=== PATIENT | female | born 1975 | race African-American/Black ===

== ENCOUNTER 2022-05-21 22:39 | Emergency (ER) | payer BC, SELFPAY ==
--- NOTE | ~2022-05-21 | CT_ITS ---
EXAMINATION: CT brain wo con DATE: 05/21/2022 22:51 INDICATION: CVA . Right facial droop. TECHNIQUE: Computed tomography (CT) of the head was performed without intravenous contrast. The mA wa s adjusted according to patient size. Iterative reconstruction technique was employed. The dose-lengt h product was 605.33 mGy-cm. COMPARISON: None FINDINGS: No acute intracranial hemorrhage or extra-axial fluid collection. No hydrocephalus, mass, or herniation. No acute ischemic infarct. Unremarkable dural venous sinus attenuation. No acute osseous abnormality. Right mastoid effusion. Minimal mucosal thickening in the bilateral maxillary sinuses, otherwise the aerated spaces are clear. Mild atherosclerotic arterial intracranial calcifications. IMPRESSION: No acute intracranial process. Results reported telephonically to Dr. Barreto by Dr. Gurrola at 10:56 PM on 05/21/2022. Reviewed, dictated and finalized at location K. IMPRESSION: No acute intracranial process. Results reported telephonically to Dr. Barreto by Dr. Gurrola at 10:56 PM on .
--- NOTE | 2022-05-21 22:44 | ECG_ITS ---
Measurements Intervals [place] Rate: 83 P: 47 CT: 167 QRS: 20 QRSD: 78 T: 28 QT: 380 QTc: 448 Interpretive Statements SINUS RHYTHM WITHIN NORMAL LIMITS NO PREVIOUS ECG AVAILABLE FOR COMPARISON Electronically Signed On 05-23-2022 16:08:05 CDT by Brandon Robert M.D.
--- NOTE | 2022-05-21 22:47 | ED.GENADULT ---
HPI - General Adult General Chief complaint: Suspected CVA Stated complaint: neuro Time Seen by Provider: 05/21/22 22:43 History of Present Illness HPI narrative: 47-year-old female presenting to the emergency department for evaluation of onset of right-sided facial droop at approximately 6:00 tonight. Patient denies any other associated numbness or weakness. Patient is not vaccinated to COVID. Patient has not yet had COVID. Patient denies any chest pain or shortness of breath. Patient does report some associated right-sided ear pain Related Data Allergies Allergy/AdvReac Type Severity Reaction Status Date / Time No Known Allergies Allergy Unverified 03/01/16 02:33 Review of Systems Review of Systems: CONSTITUTIONAL: Denies fever, chills, or sweats. EYES: Denies visual changes, redness, or discharge. ENT: Denies rhinorrhea, congestion, sore throat, or otalgia. CARDIOVASCULAR: Denies chest pain, palpitations, or edema. RESPIRATORY: Denies cough or dyspnea. GASTROINTESTINAL: Denies abdominal pain, nausea, vomiting, or diarrhea. GENITOURINARY: Denies dysuria or hematuria. SKIN: Denies rash or itching. MUSCULOSKELETAL: Denies back pain, joint pain, or myalgia. NEUROLOGIC: Right-sided facial droop PSYCHIATRIC: Denies anxiety or depression. [facility] Family History Family History (Updated 07/27/14 @ 07:13 by DOCTOR UNKNOWN) Sibling Family history of mental disorder Depression Hypertension Mother Depression Hypertension Family history of osteoarthritis Family history of hypothyroidism Father Family history of malignant neoplasm of esophagus Patient's father is Social History Social History Alcohol intake: never Exam Narrative: APPEARANCE: Well appearing, no pain, no distress, well-nourished. HEAD: normocephalic, atraumatic. EYES: PERRLA/EOMI, conjunctivae clear. NOSE: Normal no drainage EARS:TMS clear with good light reflex. THROAT: Pharynx clear, no exudate. NECK: Supple. No adenopathy, no masses. RESPIRATORY: Airway patent, respirations nonlabored. Clear to auscultation bilaterally, no rales, rhonchi, wheezing. CARDIOVASCULAR: Regular rate and rhythm without murmurs rubs or gallops. ABDOMINAL: Soft, nontender, nondistended, normal bowel sounds MUSCULOSKELETAL: Moves all extremities. Strength/ROM intact, No edema, No calf tenderness. NEURO: Alert. Right-sided facial droop involving the forehead. Patient is able to raise her left eyebrow but not able to raise her right eyebrow. No wrinkling of the right forehead. Patient has an otherwise completely normal neuro exam with no drift or ataxia for upper or lower extremities. SKIN: Warm, dry. Normal Color PSYCHIATRIC: Normal affect/mood. Course Course Emergency Course: Head CT was negative for acute intracranial abnormality. Patient's neuro exam was consistent with right-sided facial nerve palsy. The remainder of the patient's neuro exam was normal with no deficit. Patient was started on prednisone and valacyclovir in the emergency department. Patient was provided these medications for discharge. Patient was also provided eye patch, artificial tears and tape to help with corneal care. Patient was educated on the importance of close follow-up with neurology. All questions and concerns were addressed. Patient and family were comfortable with the plan for discharge and close follow-up. Vital Signs Vital signs: Vital Signs Pulse Rate 84 05/21/22 23:00 Respiratory Rate 17 05/21/22 23:00 Pulse Oximetry 97 05/21/22 23:00 Temperature 98.3 F 05/21/22 23:01 Pulse Rate 84 05/21/22 23:06 Respiratory Rate 18 05/21/22 23:06 Blood Pressure 162/92 H 05/22/22 00:36 Pulse Oximetry 99 05/21/22 23:06 Oxygen Delivery Room Air 05/21/22 23:01 Medical Decision Making Vital Signs Vital Signs: Vital Signs Pulse Rate 84 05/21/22 23:00 Respiratory Rate 17 05/21/22 23:00 Pulse Oximetry 97 05/21/22
[2022-05-21 23:00] VITALS: PULSE 84; RESP 17; O2SAT 97
[2022-05-21 23:01] VITALS: BP 179/113; PULSE 83; RESP 16; TEMP 36.8; O2SAT 99
[2022-05-21 23:01] LABS: Glucose Point of Care 94 mg/dl (65-105)
[2022-05-21 23:02] VITALS: BP 179/113; PULSE 84; RESP 17; O2SAT 98
[2022-05-21 23:06] VITALS: BP 179/113; PULSE 84; RESP 18; O2SAT 99
[2022-05-21 23:06] LABS: Basophils Absolute Auto 0.1 K/mm3 (0.0-0.1); Basophils Percent Auto 0.7 % (0.2-1.2); Eosinophils Absolute Auto 0.6 K/mm3 (0-0.3); Eosinophils Percent Auto 7.2 % (0-4.4); Hematocrit 34.7 % (37.0-47.0); Hemoglobin 11.1 g/dL (12.0-15.0); Immature Granulocyte Absolute 0.01 K/mm3 (0.00-0.031); Immature Granulocyte Percent A 0.1 % (0-0.5); Lymphocytes Absolute Auto 4.58 K/mm3 (0.9-3.2); Lymphocytes Percent Auto 54.3 % (18.3-44.2); Mean Corpuscular Hemoglobin 32.8 pg (26-34); Mean Corpuscular Volume 102.7 fl (80-100); Mean Platelet Volume 9.1 fl (7.4-10.4); Monocytes Absolute Auto 0.6 K/mm3 (0.1-0.6); Neutrophils Absolute Auto 2.6 K/mm3 (1.3-6.7); Neutrophils Percent Auto 30.7 % (45.5-73.1); Platelet Count Result 288 k/mm3 (150-375); Red Blood Count 3.38 M/mm3 (4.2-5.4); Red Cell Distribution Width 13.2 % (11.5-14.5); White Blood Count 8.4 K/mm3 (4.5-10.0)
[2022-05-21 23:17] LABS: Alanine Aminotransferase 13 U/L (6-35); Albumin Level 4.5 g/dL (3.5-5.1); Alkaline Phosphatase 49 U/L (38-126); Anion Gap 6 mmol/L (8-16); Aspartate Amino Transferase 31 U/L (14-36); Bilirubin,Total < 0.1 mg/dL (0.2-1.3); Blood Urea Nitrogen 13 mg/dL (7-17); Calcium 8.8 mg/dL (8.4-10.2); Carbon Dioxide 27 mmol/L (22-30); Chloride 107 mmol/L (98-107); Estimated Glomerular Filt Rate 49; Glucose 88 mg/dL (65-110); Sodium 140 mmol/L (137-145)
[2022-05-21 23:18] LABS: Prothrombin Time 12.9 Seconds (11.1-14.7)
[2022-05-21 23:19] LABS: Alveolar/Arterial O2 Gradient 30.6 mmHg; Base Excess ABG -4.4 mEq/l (+/-2.0); Carboxyhemoglobin 3.5 % THb (0-2.0); Fractional Inspired Oxygen 21 %; HCO3 ABG 20.6 mEq/l (22.0-26.0); Methemoglobin ABG 0.3 %THb (0-1.5); Oxygen Content ABG 14.8 %vol (16.0-22.0); Oxygen Saturation ABG 94.5 % (95.0-100.0); Oxyhemoglobin 90.5 % THb (90.0-100.0); PCO2 ABG 37.4 mmHg (35.0-45.0); PO2 ABG 74.3 mmHg (80.0-100.0); PO2 FiO2 Ratio Arterial Blood 3.54 %; Reduced Hemoglobin 5.7 %THb (0-5.0); Total Hemoglobin 11.6 g/dL (12.0-18.0); pH ABG 7.358 (7.350-7.450)
[2022-05-21 23:19] LABS: Partial Thromboplastin Time 31.7 SECONDS (22.3-36.8)
[2022-05-21 23:20] LABS: Device ROOM AIR; Modified Allen's Test Pass; Site Drawn RIGHT RADIAL
[2022-05-21 23:28] LABS: Troponin I < 0.012 ng/mL (0.000-0.034)
[2022-05-22] MEDS: ARTIFICIAL TEARS OPHTH SOLN 15 ML BOTTLE 1 DROP RIGHT EYE (00:31)
[2022-05-22] MEDS: predniSONE 20 MG TABLET 60 MG PO (00:32)
[2022-05-22] MEDS: hydrALAZINE HCL 20 MG/ML VIAL 10 MG IV PUSH (00:33)
[2022-05-22] MEDS: valACYclovir HCL 500 MG TABLET 1000 MG PO (00:33)
[2022-05-22 00:36] VITALS: BP 162/92
== END 2022-05-22 01:04 | disposition home or self-care (01) ==
PROVIDERS: Emergency Provider Emergency Medicine
DX: G51.0 Bell's palsy (principal)
CPT/HCPCS: 36415; 36600; 70450; 80053; 82375; 82805; 82948; 83050; 84484; 85025; 85610; 85730; 93005; 96374; 99284; A9270; J0360; J7512